=== PATIENT | female | born 1985 | race American Indian/Alaskan Native ===

== ENCOUNTER → 2020-11-29 16:11 | Outpatient (CLI) | payer OTHER, SELFPAY ==
--- NOTE | ~2020-11-29 | XR_ITS ---
EXAMINATION: XR lumbar spine 2-3V, XR sacrum coccyx min 2V DATE: 11/29/2020 16:32 INDICATION: Low back pain post fall 3 weeks prior TECHNIQUE: 1. Anteroposterior and lateral views of the lumbar spine, and cone-down lateral view of the lumbosacr al junction were obtained. 2. AP, caudocranial AP and lateral views of the sacrum and coccyx were obtained. COMPARISON: 04/19/2013 FINDINGS: Transitional thoracolumbar and lumbosacral segments. For purposes of this report the thoracolumbar se gment will be designated L1 with a left-sided hypoplastic riblet. The lumbosacral segment will be truong ignated as a partially lumbarized S1 segment. There are 4 intervening nonrib-bearing lumbar segments L2-L5. 11 degree DEXA scoliosis measured between L4 and S1. Sagittal alignment is normal. Minimal to mild disc height loss with small anterior degenerative endplate osteophytes at T10-T11 through L2-L3. Mild left-sided disc height loss at L4-L5 and moderate disc height loss at L5-S1. Bilateral multilev el mild lumbar facet osteoarthritis. No fractures. Sacral arches are intact. Bilateral sacroiliac and hip joint spaces are normal. IUD in expected position in the central pelvis. IMPRESSION: 1. Mild lower lumbar dextroscoliosis with moderate lumbosacral and minimal to mild lumbar and lower t horacic spondylosis. 2. IUD in expected position. Reviewed, dictated and finalized at location A. ND RIGGER IMPRESSION: 1. Mild lower lumbar dextroscoliosis with moderate lumbosacral and minimal to m ild lumbar and lower thoracic spondylosis. 2. IUD in expected position.
== END ==
PROVIDERS: PCP Family Medicine; Visit Provider Nurse Practitioner Family
DX: M47.896 Other spondylosis, lumbar region (principal); Z97.5 Presence of (intrauterine) contraceptive device
CPT/HCPCS: 72100; 72220

== ENCOUNTER → 2021-06-27 11:25 | Outpatient (CLI) | payer OTHER, SELFPAY ==
--- NOTE | ~2021-06-27 | XR_ITS ---
XR knee LT 3V DATE: 06/27/2021 11:44 INDICATION: Left knee injury, pain TECHNIQUE: [place], AP, lateral views COMPARISON: None FINDINGS: No fracture or dislocation or joint effusion. No periosteal reaction or bone destruction. J oint spaces are preserved. No radiopaque intra-articular loose body or chondrocalcinosis. IMPRESSION: Negative Reviewed, dictated and finalized at location A. IMPRESSION: Negative
== END ==
PROVIDERS: PCP Family Medicine; Visit Provider Nurse Practitioner Family
DX: S89.92XA Unspecified injury of left lower leg, initial encounter (principal); X58.XXXA Exposure to other specified factors, initial encounter
CPT/HCPCS: 73562

== ENCOUNTER → 2021-07-11 08:42 | Outpatient (CLI) | payer OTHER, SELFPAY ==
--- NOTE | ~2021-07-11 | MR_ITS ---
EXAMINATION: MR knee LT wo con DATE: 07/11/2021 10:18 INDICATION: Left knee injury with pop 2 weeks prior and now pain with walking TECHNIQUE: Magnetic resonance imaging (MRI) of the left knee was performed without intravenous contra st. Sequences included coronal PD-weighted FSE, coronal PD-weighted FS FSE, sagittal T2-weighted FSE , sagittal PD-weighted FS FSE and axial PD weighted fat saturated FSE. COMPARISON: None. FINDINGS: Medial compartment: Medial meniscus is normal. Articular cartilage is normal. Lateral compartment: Lateral meniscus is normal. Articular cartilage is normal. Patellofemoral compartment: Small region of signal heterogeneity at the caudal aspect of the trochlear groove which could be rela semaj to chondral swelling or partial thickness fissuring without degenerative subchondral changes. Ligaments and tendons: Anterior and posterior cruciate ligaments are normal. The medial collateral ligament and fibular pal ateral ligament complex are normal. The extensor mechanism is normal. The visualized medial and later al hamstring tendons as well as the iliotibial band are normal. Fluid: Physiologic amount of fluid in the joint space. No loose osteochondral bodies identified. Small amoun t of fluid in the semimembranosus bursa consistent with mild bursitis. Osseous/other: Small bone island at the medial trochlea. Otherwise normal marrow signal with no fracture or patholog ic marrow replacing process. IMPRESSION: 1. 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 2. Mild semimembranosus bursitis. 3. Normal menisci and stabilizing ligaments of the knee. Reviewed, dictated and finalized at location B. IMPRESSION: 1. 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 2. Mild semimembranosus bursitis. 3. Normal menisci and stabilizing ligaments of the knee.
== END ==
PROVIDERS: PCP Family Medicine; Visit Provider Nurse Practitioner Family
DX: S89.92XA Unspecified injury of left lower leg, initial encounter (principal); X58.XXXA Exposure to other specified factors, initial encounter; M70.52 Other bursitis of knee, left knee
CPT/HCPCS: 73721

== ENCOUNTER → 2022-03-28 12:21 | Outpatient (CLI) | payer OTHER, SELFPAY ==
--- NOTE | ~2022-03-28 | XR_ITS ---
XR lumbar spine 2-3V DATE: 03/28/2022 13:42 INDICATION: Low back pain TECHNIQUE: AP, lateral, coned lateral lumbosacral views COMPARISON: 11/29/2020 lumbar spine FINDINGS: IUD is again noted, not significantly changed in position since 11/29/2020. There are 5 functional lumbar vertebrae. There is a transitional lumbosacral vertebra. No fracture or bone destruction is evident. The lumbar pedicles are intact. There is mild degenerativ e spurring at the upper lumbar spine. Lumbar interspaces appear relatively well preserved. The sacroi liac joints are intact. IMPRESSION: Transitional lumbosacral vertebra Mild degenerative change Reviewed, dictated and finalized at location B.
== END ==
PROVIDERS: PCP Family Medicine; Visit Provider Nurse Practitioner Family
DX: M54.50 Low back pain, unspecified (principal); M51.36 Other intervertebral disc degeneration, lumbar region
CPT/HCPCS: 72100

== ENCOUNTER → 2022-05-08 15:47 | Outpatient (CLI) | payer OTHER, SELFPAY ==
--- NOTE | ~2022-05-08 | MR_ITS ---
EXAMINATION: MR lumbar spine wo con DATE: 05/08/2022 16:18 INDICATION: Low back pain. Left leg numbness. TECHNIQUE: Magnetic resonance imaging (MRI) of the lumbar spine was performed without intravenous con trast. Sequences included sagittal T2-weighted FSE, sagittal T2-weighted FS FSE, sagittal T1-weighted FSE, and axial T2-weighted FSE. COMPARISON: Lumbar spine radiographs 03/28/2022 FINDINGS: There is 4 degrees levocurvature of thoracolumbar spine. There is 3 mm retrolisthesis of L5 on S1. Vertebral body heights are normal. There is moderately decreased disc height at L5-S1. The di stal spinal cord signal intensity is normal. The conus medullaris is at L1. The following disc levels are specifically discussed: L1-L2: The disc does not extend beyond the endplate margin. There is no facet joint osteoarthritis. T here is no neural foraminal stenosis. There is no central canal stenosis. L2-L3: The disc does not extend beyond the endplate margin. There is no facet joint osteoarthritis. T here is no neural foraminal stenosis. There is no central canal stenosis. L3-L4: The disc does not extend beyond the endplate margin. There is mild bilateral facet joint osteo arthritis. There is no neural foraminal stenosis. There is no central canal stenosis. L4-L5: The disc does not extend beyond the endplate margin. There is mild bilateral facet joint osteo arthritis. There is no neural foraminal stenosis. There is no central canal stenosis. L5-S1: The disc is bulging with superimposed left subarticular and foraminal zone extrusion with mass effect on the left S1 nerve root in left lateral recess. There is mild bilateral facet joint osteoar thritis. There is mild right and moderate left neural foraminal stenosis. There is mild central canal stenosis. There is severe stenosis of left lateral recess. IMPRESSION: 1. Moderate spondylosis at L5-S1 where an extrusion exerts mass effect on left S1 nerve root. Reviewed, dictated and finalized at location A.
== END ==
PROVIDERS: PCP Emergency Medicine; Visit Provider Emergency Medicine
DX: M54.42 Lumbago with sciatica, left side (principal); M47.897 Other spondylosis, lumbosacral region; M51.27 Other intervertebral disc displacement, lumbosacral region
CPT/HCPCS: 72148

== ENCOUNTER 2024-11-23 08:04 | Emergency (ER) | payer OTHER, SELFPAY ==
[2024-11-23 08:27] VITALS: BP 131/86; PULSE 77; RESP 16; TEMP 36.4; O2SAT 99
[2024-11-23 08:40] LABS: EDSTREPNEGPOS1 Negative (Negative)
--- NOTE | 2024-11-23 08:52 | ED_ITS ---
HPI - General Adult General Chief complaint: Upper Respiratory Infection Stated complaint: RT [facility] / sore throat Source: patient Mode of arrival: ambulatory Limitations: no limitations History of Present Illness HPI narrative: Pt presents for evaluation of sore throat for the past four days. She denies any fever, chills, nausea, vomiting, diarrhea, cough, shortness of breath. Several family members have respiratory and GI symptoms. She took dayquil, nyquil and NSAIDs for her symptoms. She woke from sleep this morning with redness and yellow drainage from the right eye. Her right eye was matted shut. She denies visual disturbance. She wears glasses but not contact lenses. History of tonsillectomy. Related Data Home Medications ?Medication ?Instructions ?Recorded ?Confirmed ?Last Taken ?Type etonogestrel 0.12 mg-ethinyl 1 vag ring vaginal ONCE 11/23/24 11/23/24 Unknown History estradiol 0.015 mg/24 hr vaginal ring (NuvaRing) Allergies Allergy/AdvReac Type Severity Reaction Status Date / Time No Known Allergies Allergy Verified 11/23/24 08:27 Review of Systems Review of Systems: CONSTITUTIONAL: Denies fever, chills, or sweats. EYES: Denies visual changes, redness, or discharge. ENT: Reports sore throat. Denies rhinorrhea, congestion, or otalgia. CARDIOVASCULAR: Denies chest pain, palpitations, or edema. RESPIRATORY: Denies cough or dyspnea. GASTROINTESTINAL: Denies abdominal pain, nausea, vomiting, or diarrhea. GENITOURINARY: Denies dysuria or hematuria. SKIN: Denies rash or itching. MUSCULOSKELETAL: Denies back pain, joint pain, or myalgia. NEUROLOGIC: Denies headache, numbness, dizziness, or weakness. PSYCHIATRIC: Denies anxiety or depression. [facility] Past Medical History Medical History BMI 25.0-25.9,adult Surgical History Surgical History History of tonsillectomy Family History Family History Sibling Family history of thyroid disease Mother Family history of diabetes mellitus in first degree relative Hypertension Diabetes mellitus Grandparent Diabetes mellitus Family history of malignant neoplasm Father Hypertension Social History Social History Second hand tobacco smoke exposure: No Alcohol intake: current Substance use: never Substance use type: does not use Living arrangements: with family Occupation/Education: occupation 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 HEAD: Normocephalic, atraumatic. EYES: Right conjunctival injection. PERRLA and EOMI. ENT: Nares clear, no rhinorrhea or epistaxis. Mucous membranes moist. Oropharynx without tonsillar hypertrophy exudate or other lesions. Bilateral TMs pearly tay nonbulging NECK: Supple. No adenopathy or masses. No carotid bruits or JVD CHEST: Clear to auscultation. No respiratory distress. No wheezes rales or rhonchi HEART: Regular rate and rhythm. No murmur heard. Normal peripheral pulses. ABDOMEN: Soft, nontender, nondistended, normal active bowel sounds. EXTREMITIES: Normal range of motion. No edema. SKIN: Warm, dry, no rash. NEURO: No focal deficits. Alert and oriented x3. PSYCH: Normal mood and affect. Course Course Emergency Course: This is a 39-year-old female who presented for evaluation of sore throat. Rapid strep negative. Through shared decision making opted to proceed with antibiotic therapy. Send throat culture. Will also discharge on erythromycin as she has evidence of conjunctivitis. Increase hydration. Follow up with primary provider. Go to the ER for worsening symptoms. Pt in agreement with plan of care. Level of Care: Express Care Visit Vital Signs Vital signs: Vital Signs Temperature 36.4 C 11/23/24 08:27 Pulse Rate 77 11/23/24 08:27 Respiratory Rate 16 11/23/24 08:27 Blood Pressure 131/86 11/23/24 08:27 Pulse Oximetry 99 11/23/24 08:27 Oxygen Delivery Room Air 11/23/24 08:27 Temperature 36.4 C 11/23/24 08:27 Pulse Rate 77 11/23/24 08:27 Respiratory Rate 16 11/23/24 08:27 Blood Pressure 131/86 11/23/24 08:27 Pulse Oximetry 99 11/23/24 08:27 Oxygen Delivery Room Air 11/23/24 08:27 Medical Decision Making Vital Signs Vital Signs: Vital Signs Temperature 36.4 C 11/23/24 08:27 Pulse Rate 77 11/23/24 08:27 Respiratory Rate 16 11/23/24 08:27 Blood Pressure 131/86 11/23/24 08:27 Pulse Oximetry 99 11/23/24 08:27 Oxygen Delivery Room Air 11/23/24 08:27 Temperature 36.4 C 11/23/24 08:27 Pulse Rate 77 11/23/24 08:27 Respiratory Rate 16 11/23/24 08:27 Blood Pressure 131/86 11/23/24 08:27 Pulse Oximetry 99 11/23/24 08:27 Oxygen Delivery Room Air 11/23/24 08:27 Lab Data Labs: Lab Results 11/23/24 Range/Units 08:39 POC Grp A Strep Screen Negative (Negative) Discharge Plan Discharge Clinical Impression: Conjunctivitis, Pharyngitis Patient Disposition: Home, Self-Care Condition: Stable Instructions: Antibiotic Form, Pharyngitis (ED), Conjunctivitis (ED) Patient Language: Persian Prescriptions: New amoxicillin 500 mg tablet 500 mg PO Q12H Qty: 20 0RF erythromycin 5 mg/gram (0.5 %) ointment 0.5 inch EACH EYE 6XD Qty: 3.5 0RF No Action etonogestrel-ethinyl estradiol [NuvaRing] 0.12-0.015 mg/24 hr ring 1 vag ring vaginal ONCE Follow-up/Referrals: Debi,Buddy Conway MD [Primary Care Provider] - Stand Alone Forms: Work/School Release IP Time of Disposition: 08:51
== END 2024-11-23 08:56 | disposition home or self-care (01) ==
PROVIDERS: Emergency Provider Nurse Practitioner; PCP Internal Medicine
DX: H10.9 Unspecified conjunctivitis (principal); J02.9 Acute pharyngitis, unspecified
CPT/HCPCS: 87081; 87880; 99213; G0463